=== PATIENT | female | born 1960 | race Caucasian/White ===

== ENCOUNTER 2018-01-27 06:33 | Day surgery (SDC) | payer OTHER ==
[2018-01-27] MEDS ORDERED: LIDOCAINE 4% SOLUTION 50 ML BTL (08:38)
[2018-01-27] MEDS ORDERED: FENTAnyl 50 MCG/ML VIAL (09:31)
[2018-01-27] MEDS ORDERED: MIDAZOLAM 1 MG/ML 2 ML INJ ×3 (09:31)
== END 2018-01-27 11:28 | disposition home or self-care (01) ==
LOC: GIL 06:33
DX: Z86.010 Personal history of colon polyps (principal); D12.6 Benign neoplasm of colon, unspecified; K26.9 Duodenal ulcer, unspecified as acute or chronic, without hemorrhage or perforation; K64.4 Residual hemorrhoidal skin tags; K29.70 Gastritis, unspecified, without bleeding
CPT/HCPCS: 43239; 88305; 88312